=== PATIENT | male | born 1950 | race Caucasian/White ===

== ENCOUNTER 2018-12-28 19:23 | Outpatient (CLI) | payer MEDICARE, OTHER ==
[2018-12-29 10:33] LABS: BILIRUBIN,URINE NEGATIVE (NEGATIVE); GLUCOSE, URINE (UA) NEGATIVE (NEGATIVE); KETONES,URINE (UA) NEGATIVE (NEGATIVE); LEUKOCYTE ESTERASE, URINE NEGATIVE (NEGATIVE); NITRITE,URINE NEGATIVE (NEGATIVE); OCCULT BLOOD,URINE TRACE-LYSE (NEGATIVE); PH,URINE 5.5 PH (5.0-7.5); PROTEIN,URINE NEGATIVE (NEGATIVE); UROBILINOGEN,URINE 0.2 (NORMAL) E.U./dL (NORMAL)
[2018-12-29 10:34] LABS: CLARITY,URINE HAZY (CLEAR)
[2018-12-29 11:00] LABS: RBC,URINE 0-5 /HPF (0-5); SQUAMOUS EPITHELIAL CELL,UR RARE Squamous (<= Few)
[2018-12-29 11:01] LABS: AMORPHOUS SEDIMENT,UR Few /LPF; BACTERIA,URINE Few /HPF (None Seen); MUCUS,URINE Few Strands
[2018-12-29 11:02] LABS: CRYSTALS,URINE 11-25 Ca Oxalate /LPF
== END 2018-12-28 19:24 | disposition home or self-care (01) ==
LOC: LAB.R 19:23
PROVIDERS: ATTEND Ophthalmology
DX: R35.0 Frequency of micturition (principal)
CPT/HCPCS: 81001; 81003; 87086

== ENCOUNTER 2020-09-06 07:00 | Outpatient (CLI) | payer MEDICARE, OTHER ==
[2020-09-06 20:00] LABS: FECAL OCCULT BLOOD (FIT) NEGATIVE (NEGATIVE)
== END 2020-09-06 23:59 | disposition home or self-care (01) ==
LOC: LAB.R 07:00
PROVIDERS: ATTEND Psychiatry & Neurology Neurology
DX: R79.0 Abnormal level of blood mineral (principal)
CPT/HCPCS: 82274

== ENCOUNTER 2021-02-22 21:04 | Emergency (ER) | payer MEDICARE, OTHER ==
[2021-02-22] MEDS ORDERED: BUFFERED LIDOCAINE 10 ML SYRINGE SUBQ STA (22:38)
[2021-02-22] MEDS ORDERED: LIDOCAINE 1%-EPI 1:100000 20 ML MDV SUBQ STA (22:47)
[2021-02-22] MEDS ORDERED: CALCIUM GLUCONATE 1,000 MG in SODIUM CHLORIDE 0.9% 50 ML IV STA (22:50)
[2021-02-22] MEDS ORDERED: BUPIVACAINE 0.5% PF 10 ML VIAL ONE (22:52)
[2021-02-22 22:54] LABS: BASOPHILS # (AUTO) 0.1 10^3/uL (0.0-0.1); BASOPHILS % (AUTO) 0.8 %; EOSINOPHILS # (AUTO) 0.3 10^3/uL (0.0-0.7); EOSINOPHILS % (AUTO) 4.4 %; HCT - HEMATOCRIT 38.4 % (42.0-52.0); HGB - HEMOGLOBIN 12.9 g/dL (14.0-18.0); LYMPHOCYTES # (AUTO) 1.6 10^3/uL (1.5-3.5); LYMPHOCYTES % (AUTO) 26.8 %; MEAN CORPUSCULAR HEMOGLOBIN 30.1 pg (27.0-31.0); MEAN CORPUSCULAR HGB CONC 33.6 g/dL (32.0-36.0); MEAN CORPUSCULAR VOLUME 89.5 fL (80.0-94.0); MEAN PLATELET VOLUME 8.1 fL (7.4-11.4); MONOCYTES # (AUTO) 0.5 10^3/uL (0.0-1.0); MONOCYTES % (AUTO) 8.2 %; NEUTROPHILS # (AUTO) 3.6 10^3/uL (1.5-6.6); NEUTROPHILS % (AUTO) 59.3 %; PLT - PLATELET COUNT 300 10^3/uL (130-450); RED BLOOD COUNT 4.29 10^6/uL (4.70-6.10); RED CELL DISTRIBUTION WIDTH 12.7 % (12.0-15.0); WHITE BLOOD COUNT 6.1 x10^3/uL (4.8-10.8)
--- NOTE | 2021-02-22 23:02 | XRAY Report ---
PROCEDURE: Knee 2 View LT INDICATIONS: knee swelling, redness TECHNIQUE: 3 views of the left knee were acquired. COMPARISON: None. FINDINGS: Bones: No fractures or dislocation. No suspicious bony lesions. Soft tissues: No joint effusion. There is prepatellar soft tissue swelling. No suspicious soft tiss ue calcifications. IMPRESSION: 1. No fracture or dislocation. 2. Nonspecific prepatellar soft tissue swelling may reflect possible bursitis. Recommend correlation clinically. Reviewed by: Jas Avalos MD on 02/22/2021 11:00 PM PST Approved by: Jas Avalos MD on 02/22/2021 11:[address] [facility] Station ID: [id number]
--- NOTE | 2021-02-23 00:22 | ED Physician Documentation ---
History of Present Illness - Stated complaint Stated Complaint: L KNEE REDNESS/SWOLLEN - Chief complaint Chief Complaint: Ext Problem - History obtained from History obtained from: Patient - Additonal information Additional information: 70-year-old man presents with left knee erythema and swelling progressive over the past several days after kneeling down and scratching the knee on an unidentified object. No prior injury. No other trauma to the knee. Ambulatory without difficulty. No pain with range of motion of the knee. denies fever Review of Systems Constitutional: denies: Fever Musculoskeletal: reports: Extremity pain, Joint pain, Extremity swelling Neurologic: denies: Numbness PD PAST MEDICAL HISTORY - Past Medical History Cardiovascular: High cholesterol Respiratory: Sleep apnea Endocrine/Autoimmune: None GI: None : None HEENT: None Psych: Depression Musculoskeletal: Chronic back pain, Other Derm: None - Past Surgical History Past Surgical History: Yes - Present Medications Home Medications: Ambulatory Orders Medication Instructions Recorded Confirmed Acetaminophen/Cod 300/30 [Tylenol 1 tab PO Q6HR PRN 10/03/14 02/22/21 #3] Aspirin 81 mg PO DAILY 10/03/14 02/22/21 FLUoxetine [PROzac] 20 mg PO DAILY 10/03/14 02/22/21 Gabapentin [Neurontin] 300 mg PO TID 10/03/14 02/22/21 Nambutone 10/03/14 10/03/14 Pramipexole [Mirapex] 0.25 mg PO DAILY 10/03/14 02/22/21 QUEtiapine [SEROquel] 25 mg PO DAILY 10/03/14 02/22/21 Rosuvastatin Calcium [Crestor] 5 mg PO DAILY 10/03/14 02/22/21 cephALEXin [Keflex] 500 mg PO Q6H #28 02/23/21 - Allergies Allergies/Adverse Reactions: Allergies Allergy/AdvReac Type Severity Reaction Status Date / Time Penicillins Allergy Rash Verified 02/22/21 21:09 - Social History Does the pt smoke?: Yes Smoking Status: Current every day smoker Does the pt drink ETOH?: No Does the pt have substance abuse?: No - Immunizations Immunizations are current?: Yes - POLST Patient has POLST: No PD ED PE NORMAL - Vitals Vital signs reviewed: Yes - General General: Alert and oriented X 3, No acute distress, Well developed/nourished - HEENT HEENT: Atraumatic, PERRL, EOMI - Neck Neck: Supple, no meningeal sign - Derm Derm: Normal color, Warm and dry, Other (Left knee with overlying cellulitis and prepatellar swelling.) - Extremities Extremities: Normal ROM s pain, Other (2+ bilateral DP pulses, sensation, movement) - Neuro Neuro: Alert and oriented X 3, No motor deficit, No sensory deficit Results - Vitals Vitals: Vital Signs - 24 hr 02/22/21 02/23/21 21:09 01:25 Temperature 36.5 C 36.9 C Heart Rate 67 78 Respiratory 16 16 Rate Blood Pressure 150/55 H 125/88 H O2 Saturation 97 97 Oxygen O2 Source Room air - Labs Labs: Microbiology 02/23/21 01:15 Wound Culture - Preliminary Knee - Left Laboratory Tests 02/22/21 02/22/21 02/22/21 22:46 22:46 22:46 WBC 6.1 RBC 4.29 L Hgb 12.9 L Hct 38.4 L MCV 89.5 MCH 30.1 MCHC 33.6 RDW 12.7 Plt Count 300 MPV 8.1 Neut # (Auto) 3.6 Lymph # (Auto) 1.6 [place]ble # (Auto) 0.5 Eos # (Auto) 0.3 Baso # (Auto) 0.1 Absolute Nucleated RBC 0.00 Nucleated RBC % 0.0 ESR 53 H C-Reactive Protein 6.6 H Procedures - General procedure General procedure: Prepatellar bursa aspiration performed after obtaining consent, timeout, sterile procedure with drape after washing hands. Small amount of 1% lidocaine with epi was injected at the surface of the prepatellar bursa and a couple of cc of prepatellar fluid was obtained via aspiration with 22-gauge needle and sent to the lab for analysis. Patient tolerated well. EBL minimal. PD MEDICAL DECISION MAKING - ED course ED course: d/w Dr Yee who recommends keflex for likely prepatellar bursitis, f.u outpatient ortho. return precautions given. Departure - Departure Disposition: 01 Home, Self Care Clinical Impression: Prepatellar bursitis Condition: Good Instructions: ED Bursitis Prescriptions: cephALEXin [Keflex] 500 mg PO Q6H #28 Comments: You were seen n the emergency department for evaluation of knee infection. It looks like the bursa (the pad) in front of your knee is infected. A sample was sent to the lab for culture and you will need to take antibiotics and follow up with ortho clinic with Dr. Yee. Please return to the ED if you have new or worsening symptoms, fever, or other concerns. Discharge Date/Time: 02/23/21 01:25
[2021-02-23] MEDS ORDERED: LIDOCAINE 1% 2 ML VIAL MC ONE (00:28)
[2021-02-23] MEDS ORDERED: cefTRIAXone 1 GM VIAL IM STA (00:28)
[2021-02-23 01:54] VITALS: BP 125/88
== END 2021-02-23 01:25 | disposition home or self-care (01) ==
LOC: ED 21:04
DX: M70.42 Prepatellar bursitis, left knee (principal); L03.116 Cellulitis of left lower limb; F17.200 Nicotine dependence, unspecified, uncomplicated; Z79.82 Long term (current) use of aspirin
CPT/HCPCS: 20610; 36415; 85025; 85651; 86140; 87070; 87205

== ENCOUNTER 2023-03-03 12:45 | Emergency (ER) | payer MEDICARE, OTHER ==
--- NOTE | 2023-03-03 14:29 | ED Physician Documentation ---
History of Present Illness - Stated complaint Stated Complaint: LT FINGERS INJ - Chief complaint Chief Complaint: Laceration - History obtained from History obtained from: Patient - History of Present Illness Timing: Yesterday Pain level max: 0 Pain level now: 0 - Additonal information Additional information: 72-year-old male sustained lacerations to the left third and fourth digits yesterday on a planer. His cleaned and bandaged the wounds. They came in today for evaluation. He is diabetic. Tetanus shot is up-to-date. No active bleeding. Not on blood thinners. He denies any pain today. Review of Systems Constitutional: denies: Fever GI: denies: Vomiting, Diarrhea Skin: denies: Rash Musculoskeletal: denies: Neck pain, Back pain Neurologic: denies: Headache PD PAST MEDICAL HISTORY - Past Medical History Past Medical History: Yes Cardiovascular: High cholesterol Respiratory: Sleep apnea Endocrine/Autoimmune: None GI: None : None HEENT: None Psych: Depression Musculoskeletal: Chronic back pain, Other Derm: None - Past Surgical History Past Surgical History: Yes - Present Medications Home Medications: Ambulatory Orders Medication Instructions Recorded Confirmed Acetaminophen/Cod 300/30 [Tylenol 1 tab PO Q6HR PRN 10/03/14 02/22/21 #3] Aspirin 81 mg PO DAILY 10/03/14 02/22/21 FLUoxetine [PROzac] 20 mg PO DAILY 10/03/14 02/22/21 Gabapentin [Neurontin] 300 mg PO TID 10/03/14 02/22/21 Nambutone 10/03/14 10/03/14 Pramipexole [Mirapex] 0.25 mg PO DAILY 10/03/14 02/22/21 QUEtiapine [SEROquel] 25 mg PO DAILY 10/03/14 02/22/21 Rosuvastatin Calcium [Crestor] 5 mg PO DAILY 10/03/14 02/22/21 cephALEXin [Keflex] 500 mg PO Q6H #28 02/23/21 cephALEXin [Keflex] 500 mg PO Q6H #28 cap 03/03/23 - Allergies Allergies/Adverse Reactions: Allergies Allergy/AdvReac Type Severity Reaction Status Date / Time Penicillins Allergy Rash Verified 03/03/23 12:53 - Social History Does the pt smoke?: Yes Smoking Status: Current every day smoker Does the pt drink ETOH?: No Does the pt have substance abuse?: No - Immunizations Immunizations are current?: Yes - POLST Patient has POLST: No PD ED PE NORMAL - Vitals Vital signs reviewed: Yes - General General: Alert and oriented X 3, No acute distress - Derm Derm: Warm and dry - Extremities Extremities: Other (Left hand - laceration to the mid nail of the 3rd digit. no bleeding. also laceration to the 4th digit through the nail and tip, but no expsosed bone. NVI. FROM. tendon intact. ) - Neuro Neuro: Alert and oriented X 3 - Psych Psych: Normal mood, Normal affect Results - Vitals Vitals: Vital Signs - 24 hr 03/03/23 03/03/23 12:53 14:50 Temperature 36.8 C Heart Rate 62 65 Respiratory 16 14 Rate Blood Pressure 136/63 H 135/78 H O2 Saturation 99 95 Oxygen O2 Source Room air PD Medical Decision Making - ED course Complexity details: considered differential, d/w patient ED course: Patient with lacerations from yesterday to the left third and fourth digits. His cleansed and bandaged these at home. We will need to place the patient on antibiotics as they are dirty wounds. Tetanus is up-to-date. There are no lacerations to repair here today. No indication for x-rays. No evidence of bony injury. Warnings of infection and instructions on wound care given at bedside. Also counseled on how to minimize scarring. Patient and family counseled regarding signs and symptoms for which I believe and urgent re-evaluation would be necessary. Patient with good understanding of and agreement to plan and is comfortable going home at this time This document was made in part using voice recognition software. While efforts are made to proofread this document, sound alike and grammatical errors may occur. Patient and family were also instructed that the nail on the third digit will likely fall off. These wounds will need to heal by secondary intention and may take a long time to heal. Departure - Departure Disposition: 01 Home, Self Care Clinical Impression: Wound, open, finger Qualifiers: Encounter type: initial encounter Qualified Code(s): S61.209A - Unspecified open wound of unspecified finger without damage to nail, initial encounter Condition: Good Instructions: ED Wound Care Follow-Up: your,doctor in 1 week for wound check [Other] Prescriptions: cephALEXin [Keflex] 500 mg PO Q6H #28 cap Comments: Please take all antibiotics until gone. Keep the wounds clean. The nail will fall off on its own. These wounds may take several weeks to heal. Continue to change the dressings as needed. Please follow-up with your doctor in 1 week for recheck. Your prescriptions were sent to the [facility] pharmacy. Forms: PCP List Discharge Date/Time: 03/03/23 14:50
[2023-03-03 15:12] VITALS: BP 135/78; O2SAT 95
== END 2023-03-03 14:50 | disposition home or self-care (01) ==
LOC: ED 12:45
DX: S61.213A Laceration without foreign body of left middle finger without damage to nail, initial encounter (principal); S61.215A Laceration without foreign body of left ring finger without damage to nail, initial encounter; W26.2XXA Contact with edge of stiff paper, initial encounter; F17.200 Nicotine dependence, unspecified, uncomplicated
CPT/HCPCS: 99282; 99283